=== PATIENT | male | born 1995 | race Caucasian/White ===

== ENCOUNTER 2017-08-01 01:58 | Emergency (ER) | payer OTHER ==
[~2017-08-01] VITALS: Ht 188 cm; Wt 90.7 kg
[2017-08-01 01:59] VITALS: BP 139/72
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
[2017-08-01 02:13] VITALS: BP 139/72
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
== END 2017-08-01 02:15 ==
LOC: EMR 02:15
DX: S60.221A Contusion of right hand, initial encounter (principal); Y04.0XXA Assault by unarmed brawl or fight, initial encounter; Y92.9 Unspecified place or not applicable
CPT/HCPCS: 99283